=== PATIENT | female | born 1945 ===

== ENCOUNTER 2018-12-01 07:00 | Day surgery (SDC) | payer OTHER ==
[~2018-12-01] VITALS: Ht 160 cm; Wt 49.9 kg
[~2018-12-01 07:00] MED LIST: ASPIR 8181 MG PO; FENOFIBRATE160 MG PO; NORVASC2.5 MG PO; PROVASTATIN PO; RELAFEN PO; SYNTH PO; TENORETIC 1001 EACH PO
[2018-12-01] MEDS ORDERED: NABUMETONE750 MG PO (09:28)
[2018-12-01] MEDS ORDERED: LEVOTHYROXINE25 MCG PO (09:29)
[2018-12-01] MEDS ORDERED: PRAVASTATIN SOD10 MG PO (09:33)
== END 2018-12-01 13:00 | disposition home or self-care (01) ==
LOC: CIR.AMB 07:00 → SURH 10:00 → EDSTATUS 10:00 → CIR.AMB 13:00 → SURH 16:56 → O/R 16:56 → SURH 18:15 → O/R 12-02 11:13
DX: D06.0 Carcinoma in situ of endocervix (principal); D25.1 Intramural leiomyoma of uterus; N84.0 Polyp of corpus uteri

== ENCOUNTER 2020-08-28 09:27 | Outpatient (CLI) | payer OTHER ==
[~2020-08-28 09:27] MED LIST changes: +LEVOTHYROXINE25 MCG PO; +NABUMETONE750 MG PO; +PRAVASTATIN SOD10 MG PO
== END 2020-08-28 09:33 | disposition home or self-care (01) ==
LOC: TOM 09:27
PROVIDERS: ATTEND Internal Medicine Gastroenterology
DX: Z12.11 Encounter for screening for malignant neoplasm of colon (principal); K42.9 Umbilical hernia without obstruction or gangrene

== ENCOUNTER 2023-01-28 07:36 | Outpatient (CLI) | payer OTHER | END 2023-01-28 07:40 | disposition home or self-care (01) | LOC: SONOGRAMA 07:36 | PROVIDERS: ATTEND Pathology Anatomic Pathology & Clinical Pathology | DX: D34 Benign neoplasm of thyroid gland (principal); E04.9 Nontoxic goiter, unspecified ==